=== PATIENT | female | born 1995 | race Asian ===

== ENCOUNTER 2020-06-22 07:48 | Day surgery (SDC) | payer OTHER ==
[~2020-06-22] VITALS: Ht 160 cm; Wt 72.9 kg
[~2020-06-22 07:48] MED LIST: KETOROLAC 60MG 2ML VIAL As Ordered ONE; LIDOCAINE 2% 100MG/5ML SDV (FOR ANES.) As Ordered ONE; LR 1,000 ML IV ONE; MIDAZOLAM INJ 2MG/2ML VIAL (J2250 PER 1MG) As Ordered ONE; ONDANSETRON 4MG/2ML VIAL As Ordered ONE; dexameTHASONE 4 MG/ML 1ML VIAL (J1100 PER 1MG) As Ordered ONE; fentaNYL 100 MCG/2 ML INJECTION (J3010) As Ordered ONE; propofoL 200 MG/20 ML VIAL As Ordered ONE
[2020-06-22 08:35] LABS: HEMATOCRIT 44.2 % (36.0-47.0); HEMOGLOBIN 14.5 g/dl (12.0-15.5); MEAN CORPUSCULAR HGB CONC 32.8 g/dl (32.0-36.5); MEAN CORPUSCULAR VOLUME 88.4 fl (80.0-96.0); PLATELET COUNT, AUTOMATED 241 10^3/uL (150-450); WHITE BLOOD COUNT 8.6 10^3/uL (4.0-10.0)
[2020-06-22] MEDS ORDERED: ACETAMINOPHEN 650 MG SUPP As Ordered ONE (09:00)
[2020-06-22 09:10] LABS: BLOOD UREA NITROGEN 14 MG/DL (7-18); CALCIUM LEVEL 8.3 MG/DL (8.5-10.1); CARBON DIOXIDE LEVEL 28 MEQ/L (21-32); CHLORIDE LEVEL 107 MEQ/L (98-107); CREATININE FOR GFR 0.85 MG/DL (0.55-1.30); GLOMERULAR FILTRATION RATE > 60.0 (>60); GLUCOSE, FASTING 88 MG/DL (70-100); HCG, SERUM QUANTITATIVE < 1.0 MIU/ML; SODIUM LEVEL 140 MEQ/L (136-145)
[2020-06-22] MEDS ORDERED: oxyCODONE 5MG TAB PO PRN (11:15)
[2020-06-22] MEDS ORDERED: LR 1,000 ML IV SCH (11:15)
[2020-06-22] MEDS ORDERED: METOCLOPRAMIDE INJ 10MG/2ML VIAL (J2765 PER 1) IV PRN (11:15)
[2020-06-22] MEDS ORDERED: ONDANSETRON 4MG/2ML VIAL IV PRN (11:15)
[2020-06-22] MEDS ORDERED: MEPERIDINE INJ 25 MG/ML VIAL (J2175) IV PRN (11:15)
[2020-06-22] MEDS ORDERED: KETOROLAC 30 MG/ML 1ML VIAL IV PRN (11:15)
[2020-06-22] MEDS ORDERED: fentaNYL 100 MCG/2 ML INJECTION (J3010) IV PRN (11:15)
[2020-06-22 11:59] VITALS: BP 126/80
== END 2020-06-22 12:07 | disposition home or self-care (01) ==
LOC: M SDC 07:48
PROVIDERS: ATTEND Obstetrics & Gynecology
DX: N88.2 Stricture and stenosis of cervix uteri (principal); Q51.28 Other and unspecified doubling of uterus; Q51.4 Unicornate uterus
CPT/HCPCS: 36415; 58555; 80048; 84702; 85027; J1100; J1885; J2250; J2405; J3010